=== PATIENT | female | born 2000 | race Two or more races ===

== ENCOUNTER 2019-11-23 18:08 | Emergency (ER) | payer BC ==
[~2019-11-23] VITALS: Ht 157.5 cm; Wt 61.4 kg
[2019-11-23 18:37] VITALS: BP 119/62
[2019-11-23 18:41] LABS: BILIRUBIN,URINE NEGATIVE (NEG); CLARITY,URINE CLEAR; COLOR,URINE YELLOW; NITRITE,URINE NEGATIVE (NEG); PROTEIN,URINE NEGATIVE (NEG-TRACE)
[2019-11-23 18:48] LABS: BACTERIA,URINE FEW /HPF (0-FEW); RBC,URINE RARE /HPF (0-2); SQUAMOUS EPITHELIAL CELL,UR MOD /LPF
--- NOTE | 2019-11-23 19:04 | PHYS DOC ---
Past Medical History Past Medical History: No Pertinent History Past Surgical History: No Surgical History Smoking Status: Never Smoker Alcohol Use: None Drug Use: Marijuana General Adult EDM: Chief Complaint: URINARY FREQUENCY HPI: HPI: 19 year old female presents with 1 month history of pelvic cramping with urinary hesitancy. Reports some dysuria. Reports some white thin vaginal discharge. Denies but reports she is currently having unprotected sexual activity. Denies nausea or vomiting. Reports had been previously diagnosed with an UTI and was started on antibiotics. Reports she was unable to swallow the pills due to their size and therefore did not finish the course of the antibiotics. Denies fever/chills. Denies diarrhea or constipation. Reports her urine is dark and malodorous but she hasn't been drinking enough water recently. Review of Systems: Review of Systems: Constitutional: Denies fever or chills Eyes: Denies redness or eye pain HENT: Denies nasal congestion or sore throat Respiratory: Denies cough or shortness of breath Cardiovascular: Denies chest pain or palpitations GI: Reports pelvic pain; denies nausea or vomiting : Reports dysuria and urinary urgency/hesitancy; denies hematuria [employer]: Reports vaginal discharge; denies Musculoskeletal: Denies back pain or joint pain Integument: Denies rash or skin lesions Neurologic: Denies headache, focal weakness or sensory changes Complete systems were reviewed and found to be within normal limits, except as documented in this note. Allergies: Allergies: Allergies Coded Allergies Type Severity Reaction Last Updated Verified No Known Drug Allergies 11/23/19 No Physical Exam: PE: Constitutional: Well developed, well nourished, no acute distress, non-toxic appearance HENT: Normocephalic, atraumatic Eyes: Conjunctiva normal, no discharge Neck: Normal range of motion, no tenderness, supple Lungs & Thorax: No respiratory distress, equal chest rise and fall Abdomen: Soft, no tenderness, no distention/rebound tenderness/guarding Pelvic exam: Declined by patient, she will follow with [employer] Skin: Warm, dry, no erythema, no rash Back: No tenderness, no CVA tenderness Neurologic: Alert and oriented X 3, no focal deficits noted Psychologic: Affect normal, judgment normal Current Patient Data: Labs: Laboratory Tests Test 11/23/19 18:20 11/23/19 18:37 Urine Collection Type Unknown Urine Color Yellow Urine Clarity Clear Urine pH 6.0 (<5.0-8.0) Urine Specific [place] 1.015 (1.000-1.030) Urine Protein Negative mg/dL (NEG-TRACE) Urine Glucose (UA) Negative mg/dL (NEG) Urine Ketones (Stick) Negative mg/dL (NEG) Urine Blood Negative (NEG) Urine Nitrite Negative (NEG) Urine Bilirubin Negative (NEG) Urine Urobilinogen Dipstick 1.0 mg/dL (0.2 mg/dL) Urine Leukocyte Esterase Small (NEG) Urine RBC Rare /HPF (0-2) Urine WBC 1-4 /HPF (0-4) Urine Squamous Epithelial Cells Mod /LPF Urine Bacteria Few /HPF (0-FEW) POC Urine HCG, Qualitative Hcg negative (Negative) Vital Signs: Vital Signs Date Time Temp Pulse Resp B/P (MAP) Pulse Ox O2 Delivery O2 Flow Rate FiO2 11/23/19 18:37 98.2 78 16 119/62 (81) 100 Room Air 98.2 EKG: EKG: [] Radiology/Procedures: Radiology/Procedures: [] Course & Med Decision Making: Course & Med Decision Making Pertinent Lab studies reviewed. (See chart for details) Patient presents with 1 month history of urinary hesitancy and pelvic pain. Patient concerned for UTI. UA without significant findings consistent for UTI. Appears more contaminated based on clean catch urine. Upreg negative. Patient does reports some vaginal discharge. Offered pelvic exam, which patient reports she was recently checked for STDs and was negative. Patient therefore declined and will follow up with [employer]. [employer] referral provided. Patient stable for discharge with outpatient follow-up with PCP/[employer]. Discussed findings and plan with patient, who acknowledges understanding and agreement. [place] Disclaimer: [place] Disclaimer: This electronic medical record was generated, in whole or in part, using a voice recognition dictation system. Departure Departure Impression: Primary Impression: Dysuria Disposition: 01 HOME, SELF-CARE Condition: STABLE Referrals: NO PCP (PCP) NORMAN JEFFERSON Jr, MD Patient Instructions: Dysuria Additional Instructions: Use over the counter Tylenol and Ibuprofen for discomfort. Increased fluid hydration. MADINA SOTOMAYOR DO November 23, 2019 19:04
== END 2019-11-23 19:05 | disposition home or self-care (01) ==
LOC: ER 18:08
DX: R30.0 Dysuria (principal); R10.2 Pelvic and perineal pain; R39.11 Hesitancy of micturition; N89.8 Other specified noninflammatory disorders of vagina; F12.90 Cannabis use, unspecified, uncomplicated
CPT/HCPCS: 81001; 81025; 87086; 99283